=== PATIENT | male | born 1940 | race Two or more races ===

== ENCOUNTER 2018-01-31 14:59 | Inpatient (IN) | payer SELFPAY ==
[2018-01-31] MEDS ORDERED: ACETAMINOPHEN 500 MG TAB ONE (15:14)
[2018-01-31] MEDS ORDERED: ACETAMINOPHEN 500 MG TAB PO ONE (15:18)
--- NOTE | 2018-01-31 15:23 | EDPHY ---
H & P Stated Complaint: shaking at home while sitting on couch 20 mins ago. AMS, weakness Time Seen by Provider: 01/31/18 15:05 HPI/ROS: CHIEF COMPLAINT: Shaking, weak, altered mental status, urinating on self HISTORY OF PRESENT ILLNESS: This is a 77-year-old male who arrives with his family. They report that he went to the bathroom shortly before arrival, came back sat on the couch, then stood up to go to the bathroom again at which point he started shaking, and collapsed onto the couch. Somewhat unclear if he had a seizure or syncope. They report that he was awake and alert immediately after the incident. It is noted that the patient did urinate on himself. On arrival to the emergency department he is noted not to be able to walk and is complaining that his legs feel weak. Family reports that he has been in his usual state of health until this episode. Patient does state that he had a fever. Questionable history of increased urination. Patient denies a headache, chest pain, shortness of breath, abdominal pain, nausea, vomiting. He does report some pain in his flank. Patient family denies history of hypertension, diabetes, liver kidney issues, cardiac issues. They state he only takes medicines for his knees. Denies a history of cancer. REVIEW OF SYSTEMS: A comprehensive 10 system review of systems was reviewed and is otherwise negative aside from elements mentioned in the history of present illness and medical decision making. PAST MEDICAL HISTORY: Chronic knee pain. SOCIAL HISTORY: Nonsmoker, no alcohol, no illicit drug use. VITAL SIGNS Reviewed by me. Febrile to 38, heart rate 103, blood pressure 162/ 97, O2 sat 88% on room air. GENERAL: Elderly male, Ukrainian-speaking only, very weak, slow to answer questions which the patient the family states is normal. Occasionally shaky. HEENT: Atraumatic. 1.5 cm in diameter raised lesion on the left synagogue with granulation tissue present. Eyes: No icterus, no injection. Pupils equal round reactive to light. Mouth: Very dry mucous membranes. No erythema or lesions. No trauma to the tongue. Neck: supple with no adenopathy. LUNGS: Clear to auscultation anteriorly, no wheezes, rhonchi or rales. CARDIAC: Mild tachycardia. Otherwise regular, no rubs murmurs or gallops. ABDOMEN: Soft, nontender, nondistended, bowel sounds normal. Appendectomy scar in the right lower quadrant. BACK: Mild bilateral CVA tenderness. EXTREMITIES: No trauma. No edema. Moves all extremities x4. No edema. NEURO: Alert and appears to be answering questions correctly a utilizing the family as enlisted advisor. Cranial nerves 2-12 are intact. Generalized weakness but no focal deficits noted. SKIN: Hot to the touch, no rash. PSYCHIATRIC: No agitation, slightly slow in answering questions. - Personal History Current Tetanus Diphtheria and Acellular Pertussis (TDAP): No - Medical/Surgical History Hx Asthma: No Hx Chronic Respiratory Disease: No Hx Diabetes: No Hx Cardiac Disease: No Hx Renal Disease: No Hx Cirrhosis: No Hx Alcoholism: No Hx HIV/AIDS: No Hx Splenectomy or Spleen Trauma: No Other PMH: denies - Social History Smoking Status: Never smoked Constitutional: Initial Vital Signs Temperature (C) 37.8 C 01/31/18 15:01 Heart Rate 103 H 01/31/18 15:01 Respiratory Rate 16 01/31/18 15:01 Blood Pressure 162/97 H 01/31/18 15:01 O2 Sat (%) 88 L 01/31/18 15:01 O2 Delivery Mode Nasal Cannula O2 (L/minute) 2 Allergies/Adverse Reactions: No Known Allergies Allergy (Verified 01/31/18 19:09) Home Medications: Medication Instructions Recorded NK [No Known Home Meds] 01/31/18 Medical Decision Making - Diagnostics Imaging Results: Imaging Impressions Chest X-Ray 01/31/18 15:20 Impression: 1. Findings compatible with congestive heart failure are noted. 2. Lower lung opacities bilaterally, sequela of congestive heart failure versus pneumonia. 3. Possible enlarged hilar lymph node. 4. See above report for additional findings. Head CT 01/31/18 15:23 Impression: 1. Elderly brain with atrophy and probable white matter small vessel disease. 2. Nothing acute is identified. 3. See above report for additional findings. Results called and discussed with Mallorie Chaparro MD on 01/31/2018 at 16:38. ED Course/Re-evaluation: Patient noted to be febrile to 38.0. Concern for sepsis is raised. Patient IV placed was started on a L of normal saline. Bedside lactic acid is 3.1. Creatinine is 1.8. Severe sepsis was declared at 320 p.m.. Patient was started on 30 cc/kilos of normal saline. White blood cell count 9.6. 12-LEAD EKG: Please see the full report in [facility]. My interpretation: Sinus tachycardia, no acute ST or T-wave changes. Urinalysis was obtained and the patient was given a dose of ceftriaxone. Patient underwent CT scan of the head as well as chest x-ray. Head CT does not demonstrate any bleeding or mass. There is signs of atrophy. Chest x-ray with poor inspiration, however, patient does have an enlarged heart and appears to have some volume overload versus possible pneumonia. Levofloxacin 750 mg also ordered. Influenza and respiratory pathogen panel were ordered. On re-examination, the patient is somewhat restless, complaining of a headache. Repeat lactic acid was ordered. Neck remains supple with no meningismus. Patient remains alert and appropriate according to the family. Case discussed with Dr. Anthony Juan. Patient will be admitted to MedSurg at [facility]. Repeat lactic acid is 2.4. We are unable to obtain a PT/INR a secondary to technical difficulties. Unable to obtain at point of care influenza secondary to technical difficulties. The patient will be transferred over [facility] via EMS. At this point, respiratory pathogen panel, urine microscopic, BNP, PT/ INR, are all pending. Differential Diagnosis: Differential diagnoses for the patient's symptom complex was considered including but not limited to seizure versus syncope, septicemia, urosepsis, hypoxemia from pulmonary edema versus pneumonia, electrolyte abnormalities, acute coronary syndrome. - Data Points Laboratory Results: 01/31/18 01/31/18 01/31/18 15:51 15:15 15:15 PT INR POC Sodium POC Potassium POC Chloride POC Total CO2 POC BUN POC Creatinine POC Glucose POC Lactic Acid Warren 3.1 mmol/L H mmol/L (0.7-2.1) POC Calcium POC Total Bilirubin POC AST POC ALT POC Alk Phosphatase POC Troponin I 0.00 ng/mL ng/mL (0.00-0.08) NT-Pro-B Natriuret Pep POC Total Protein POC Albumin Urine Color YELLOW Urine Appearance CLEAR Urine pH 7.0 (5.0-7.5) Ur Specific [place] 1.014 (1.002-1.030) Urine Protein 1+ H (NEGATIVE) Urine Ketones NEGATIVE (NEGATIVE) Urine Blood 1+ H (NEGATIVE) Urine Nitrate POSITIVE H (NEGATIVE) Urine Bilirubin NEGATIVE (NEGATIVE) Urine Urobilinogen NEGATIVE EU EU (0.2-1.0) Ur Leukocyte Esterase NEGATIVE (NEGATIVE) Urine RBC 5-10 /hpf H /hpf (0-3) Urine WBC 5-10 /hpf H /hpf (0-3) Ur Epithelial Cells NONE SEEN /lpf /lpf (NONE-1+) Urine Bacteria 1+ /hpf H /hpf (NONE SEEN) Urine Mucus TRACE /lpf /lpf (NONE-1+) Urine Glucose NEGATIVE (NEGATIVE) 01/31/18 01/31/18 01/31/18 15:09 15:02 15:02 PT 13.2 SEC SEC (12.0-15.0) INR 0.98 (0.83-1.16) POC Sodium 144 mEq/L mEq/L (135-145) POC Potassium 4.0 mEq/L mEq/L (3.3-5.0) POC Chloride 106.0 mEq/L mEq/L (97-110) POC Total CO2 24 mEq/L mEq/L (22-31) POC BUN 33 mg/dL H mg/dL (7-23) POC Creatinine 1.8 mg/dL H mg/dL (0.7-1.3) POC Glucose 81 mg/dL mg/dL (70-100) POC Lactic Acid Warren POC Calcium 9.1 mg/dL mg/dL (8.5-10.4) POC Total Bilirubin 1.4 mg/dL mg/dL (0.1-1.4) POC AST 37 IU/L IU/L (17-59) POC ALT 44 IU/L IU/L (21-72) POC Alk Phosphatase 139 IU/L H IU/L (38-126) POC Troponin I NT-Pro-B Natriuret Pep 431 pg/mL pg/mL (0-450) POC Total Protein 8.3 g/dL H g/dL (6.3-8.2) POC Albumin 3.6 g/dL g/dL (3.5-5.0) Urine Color Urine Appearance Urine pH Ur Specific [place] Urine Protein Urine Ketones Urine Blood Urine Nitrate Urine Bilirubin Urine Urobilinogen Ur Leukocyte Esterase Urine RBC Urine WBC Ur Epithelial Cells Urine Bacteria Urine Mucus Urine Glucose Medications Given: Azithromycin 500 mg/ Sodium (Chloride) 255 mls @ 255 mls/hr IV DAILY THOMAS PRN Reason: Protocol Stop: 03/02/18 20:29 Last Admin: 01/31/18 21:20 Dose: 255 mls Discontinued Medications Acetaminophen (Tylenol) 1,000 mg PO EDNOW ONE Stop: 01/31/18 15:19 Last Admin: 01/31/18 15:19 Dose: 1,000 mg Fentanyl (Sublimaze) 25 mcg IVP EDNOW ONE Stop: 01/31/18 15:52 Last Admin: 01/31/18 15:55 Dose: 25 mcg Ceftriaxone Sodium/Dextrose (Rocephin 1 Gm (Premix)) 50 mls @ 100 mls/hr IV EDNOW ONE PRN Reason: Protocol Stop: 01/31/18 15:48 Last Admin: 01/31/18 16:25 Dose: 50 mls Sodium Chloride (Ns) 1,700 mls @ 3,400 mls/hr 30 ml/kg infuse over 30 min ( 1700 ml) IV EDNOW ONE PRN Reason: Protocol Stop: 01/31/18 15:53 Last Admin: 01/31/18 16:05 Dose: 1,700 mls Levofloxacin/Dextrose (Levaquin 750 Mg (Premix)) 150 mls @ 100 mls/hr IV EDNOW ONE PRN Reason: Protocol Stop: 01/31/18 18:13 Last Admin: 01/31/18 17:13 Dose: 150 mls Ibuprofen (Motrin) 600 mg PO EDNOW ONE Stop: 01/31/18 17:05 Last Admin: 01/31/18 17:39 Dose: 600 mg Point of Care Test Results: CBC CBC Collection Date 01/31/18 CBC Collection Time 15:05 WBC 9.2 RBC 5.34 HGB 17.4 HCT 48.2 PLT 200 Neut # 7.8 Neut 84.6 LYMPH # 1.0 LYMPH 11.2 Other WBC # 0.4 Other WBC 4.2 MCV 90.3 Chemistry 01/31/18 01/31/18 15:15 15:09 POC Sodium 144 mEq/L mEq/L (135-145) POC Potassium 4.0 mEq/L mEq/L (3.3-5.0) POC Chloride 106.0 mEq/L mEq/L (97-110) POC Total CO2 24 mEq/L mEq/L (22-31) POC BUN 33 mg/dL H mg/dL (7-23) POC Creatinine 1.8 mg/dL H mg/dL (0.7-1.3) POC Glucose 81 mg/dL mg/dL (70-100) POC Calcium 9.1 mg/dL mg/dL (8.5-10.4) POC Total Bilirubin 1.4 mg/dL mg/dL (0.1-1.4) POC AST 37 IU/L IU/L (17-59) POC ALT 44 IU/L IU/L (21-72) POC Alk Phosphatase 139 IU/L H IU/L (38-126) POC Troponin I 0.00 ng/mL ng/mL (0.00-0.08) POC Total Protein 8.3 g/dL H g/dL (6.3-8.2) POC Albumin 3.6 g/dL g/dL (3.5-5.0) Blood Gas/Lactic Acid-Venous 01/31/18 15:15 POC Lactic Acid Warren 3.1 mmol/L H mmol/L (0.7-2.1) Urine Dip Collection Date 01/31/18 Collection Time 15:52 Specific [place] (1.002-1.030) 1.025 PH (5.0-7.5) 7.0 Leukocytes (Negative) Trace Nitrites (Negative) Positive Protein (Negative) 2+ Glucose (Negative) Negative Ketones (Negative) Negative Urobilnogen (0.2-1.0 EU) 0.2 Bilirubin (Negative) Negative Blood (Negative) 1+ Departure - Departure Disposition: [facility] Clinical Impression: Septicemia Fever Qualifiers: Fever type: unspecified Qualified Code(s): R50.9 - Fever, unspecified Urinary tract infection Qualifiers: Urinary tract infection type: site unspecified Hematuria presence: without hematuria Qualified Code(s): N39.0 - Urinary tract infection, site not specified Condition: Fair
[2018-01-31] MEDS ORDERED: NS 1,700 ML IV ONE (15:24)
[2018-01-31] MEDS ORDERED: fentaNYL 100 MCG/2 ML INJ IVP ONE (15:51)
[2018-01-31] MEDS ORDERED: IBUPROFEN 600 MG TAB PO ONE (17:04)
[2018-01-31 17:55] LABS: INR 0.98 (0.83-1.16); PROTIME(PATIENT) 13.2 SEC (12.0-15.0)
[2018-01-31] MEDS ORDERED: HYDROCODONE/APAP 5/325 TAB PO PRN (18:51)
[2018-01-31] MEDS ORDERED: ACETAMINOPHEN 325 MG TAB PO PRN (18:51)
[2018-01-31] MEDS ORDERED: LORazepam 0.5 MG TAB PO PRN (18:51)
[2018-01-31] MEDS ORDERED: PROMETHAZINE HCL 25 MG/ML INJ IVP PRN (18:51)
[2018-01-31] MEDS ORDERED: ONDANSETRON 4 MG/2 ML VIAL IVP PRN (18:51)
[2018-01-31] MEDS ORDERED: oxyCODONE IR 5 MG TAB PO PRN (18:51)
[2018-01-31] MEDS ORDERED: ONDANSETRON DISINTEGRATING 4 MG TAB PO PRN (18:51)
[2018-01-31] MEDS ORDERED: HYDROmorphONE/DILAUDID 1 MG/ML INJ IVP PRN (18:51)
[2018-01-31 19:41] LABS: PLATELET COUNT 182 10^3/uL (150-400)
--- NOTE | 2018-01-31 19:53 | PDGENHP ---
History and Physical - Chief Complaint fever, weakness - History of Present Illness 77 yo M with no known PMH presenting from home after he was noted to be febrile and having difficulty with significant weakness. Per patient and his family he was on the toilet when he became very weak, and had to call his for help to get him up. He was noted to be having shaking chills and seemed febrile to family. He notes that prior to that for the last several days he has had cough and sputum production. He denies any chest pain or sob. He has not noticed any changes in urination or difficulty urinating. He has not had similar issues in the past. He notes that currently he feels well for the most part. Patient is Kyrgyz speaking only, history was obtained with the help of chemical weigher present at bedside. History Information - Allergies/Home Medication List Allergies/Adverse Reactions: No Known Allergies Allergy (Verified 01/31/18 19:09) Home Medications: NK [No Known Home Meds] 01/31/18 [Last Taken Unknown] I have personally reviewed and updated: family history, medical history, social history, surgical history - Past Medical History no pertinent PMH - Surgical History Reports: appendectomy - Family History Positive for: non-pertinent - Social History Smoking Status: Never smoked Alcohol Use: Other (2-3 beers per day) Drug Use: None Additional social history: , SSO, originally from [place] Review of Systems Review of Systems: ROS: 10pt was reviewed & negative except for what was stated in HPI & below Physical Exam Physical Exam: Temp Pulse Resp BP Pulse Ox 36.9 C 77 16 124/67 H 95 01/31/18 19:42 01/31/18 19:42 01/31/18 19:42 01/31/18 19:42 01/31/18 19:42 O2 (L/minute) 3 Constitutional: no apparent distress, appears nourished Eyes: PERRL, anicteric sclera Ears, Nose, Mouth, Throat: moist mucous membranes, hearing normal Cardiovascular: regular rate and rhythym, no murmur, rub, or gallop, No edema Respiratory: no respiratory distress, no rales or rhonchi Gastrointestinal: normoactive bowel sounds, soft, non-tender abdomen Genitourinary: no bladder tenderness Skin: warm, other (lesion on left forehead with scabbing and erythema) Musculoskeletal: no muscle tenderness Neurologic: AAOx3 Psychiatric: interacting appropriately, not anxious, not encephalopathic Lab Data & Imaging Review 01/31/18 19:29 01/31/18 19: WBC 13.68 10^3/uL (3.80-9.50) H 01/31/18 19: RBC 4.54 10^6/uL (4.40-6.38) 01/31/18 19: Hgb 14.2 g/dL (13.7-17.5) 01/31/18 19: Hct 40.6 % (40.0-51.0) 01/31/18 19: MCV 89.4 fL (81.5-99.8) 01/31/18: MCH 31.3 pg (27.9-34.1) 01/31/18: MCHC 35.0 g/dL (32.4-36.7) 01/31/18: RDW 14.0 % (11.5-15.2) 01/31/18: Plt Count 182 10^3/uL (150-400) 01/31/18 19: MPV 11.3 fL (8.7-11.7) 01/31/18 19: PT 13.2 SEC (12.0-15.0) 01/31/18 15:02 INR 0.98 (0.83-1.16) 01/31/18 15:02 VBG Lactic Acid 1.5 mmol/L (0.7-2.1) 01/31/18 19: POC Sodium 144 mEq/L (135-145) 01/31/18 15:09 POC Potassium 4.0 mEq/L (3.3-5.0) 01/31/18 15:09 POC Chloride 106.0 mEq/L (97-110) 01/31/18 15:09 POC Total CO2 24 mEq/L (22-31) 01/31/18 15:09 POC BUN 33 mg/dL (7-23) H 01/31/18 15:09 POC Creatinine 1.8 mg/dL (0.7-1.3) H 01/31/18 15:09 POC Glucose 81 mg/dL (70-100) 01/31/18 15:09 POC Lactic Acid Warren 2.4 mmol/L (0.7-2.1) H D 01/31/18 17:03 POC Calcium 9.1 mg/dL (8.5-10.4) 01/31/18 15:09 POC Total Bilirubin 1.4 mg/dL (0.1-1.4) 01/31/18 15:09 POC AST 37 IU/L (17-59) 01/31/18 15:09 POC ALT 44 IU/L (21-72) 01/31/18 15:09 POC Alk Phosphatase 139 IU/L (38-126) H 01/31/18 15:09 POC Troponin I 0.00 ng/mL (0.00-0.08) 01/31/18 15:15 NT-Pro-B Natriuret Pep 431 pg/mL (0-450) 01/31/18 15:02 POC Total Protein 8.3 g/dL (6.3-8.2) H 01/31/18 15:09 POC Albumin 3.6 g/dL (3.5-5.0) 01/31/18 15:09 Urine Color YELLOW 01/31/18 15:51 Urine Appearance CLEAR 01/31/18 15:51 Urine pH 7.0 (5.0-7.5) 01/31/18 15:51 Ur Specific [place] 1.014 (1.002-1.030) 01/31/18 15:51 Urine Protein 1+ (NEGATIVE) H 01/31/18 15:51 Urine Ketones NEGATIVE (NEGATIVE) 01/31/18 15:51 Urine Blood 1+ (NEGATIVE) H 01/31/18 15:51 Urine Nitrate POSITIVE (NEGATIVE) H 01/31/18 15:51 Urine Bilirubin NEGATIVE (NEGATIVE) 01/31/18 15:51 Urine Urobilinogen NEGATIVE EU (0.2-1.0) 01/31/18 15:51 Ur Leukocyte Esterase NEGATIVE (NEGATIVE) 01/31/18 15:51 Urine RBC 5-10 /hpf (0-3) H 01/31/18 15:51 Urine WBC 5-10 /hpf (0-3) H 01/31/18 15:51 Ur Epithelial Cells NONE SEEN /lpf (NONE-1+) 01/31/18 15:51 Urine Bacteria 1+ /hpf (NONE SEEN) H 01/31/18 15:51 Urine Mucus TRACE /lpf (NONE-1+) 01/31/18 15:51 Urine Glucose NEGATIVE (NEGATIVE) 01/31/18 15:51 Visualized and Interpreted Chest x-ray results: Yes Chest X-Ray results: other (bilateral lower lung opacities c/w CHF vs PNA) Visualized and Interpreted imaging results: Yes Interpretation: head CT: nothing acute Assessment & Plan Assessment: 77 yo M with no significant PMH presenting with severe sepsis and human rhinovirus/enterovirus on resp pcr # severe sepsis: with source presumably viral pna as next, lactate trending down , HD stable. # pna: presumably due to viral infection with resp panel showing human rhinovirus/enterovirus and bilateral infiltrate noted on cxr. Started on ctx and will add azithro for now. Will repeat cxr in am as last one was a bit of a poor study. ? of CHF on cxr but BNP wnl, no edema so seems less likely. 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 Old records reviewed. Care plan reviewed with ER doctor including plans for abx. Further hx obtained from patients family present at bedside.
[2018-01-31] MEDS: AZITHROMYCIN IV 500 MG in NS 250 ML IV SCH (21:20)
[2018-02-01 05:41] LABS: PLATELET COUNT 169 10^3/uL (150-400)
--- NOTE | 2018-02-01 06:40 | CPEKG ---
Test Reason : OPEN Blood Pressure : / mmHG Vent. Rate : 074 BPM Atrial Rate : 074 BPM P-R Int : 156 ms QRS Dur : 094 ms QT Int : 403 ms P-R-T Axes : 017 -14 007 degrees QTc Int : 448 ms Sinus rhythm Abnormal R-wave progression, early transition Minimal ST elevation, anterior leads Confirmed by Emma Nichols [id number]) on 02/01/2018 6:39:20 AM Referred By: Confirmed By:Emma Nichols
[2018-02-01] MEDS ORDERED: ENOXAPARIN 30 MG/0.3 ML SYR SC SCH (09:00)
[2018-02-01] MEDS: AZITHROMYCIN IV 500 MG in NS 250 ML IV SCH (09:58)
--- NOTE | 2018-02-01 13:13 | HOSPPROG ---
Hospitalist Progress Note Assessment/Plan: 77 yo M with no significant PMH presenting with severe sepsis and human rhinovirus/enterovirus on resp pcr. First encounter, chart reviewed. Met with historical interpreter. # severe sepsis: -resolved #Ecoli bacteremia -likely urine source -cont CTX #PNA -presumably viral pna -human rhinovirus -cxr reviewed, viral process -DC rose # hiwot: -presumed hiwot -improved with hydration # bacturia: -patient denies urinary sxs, -being treated with ctx -cultures pending # skin lesion: -appears concerning for basal cell - has been present and growing x 2 years per patient - he does not have a doctor currently - stressed to him and family that he should establish care with [facility] and have that removed # Dispo -change to inpatient status -requires further iv abx treatment -await urine cx -PT eval Subjective: Feels better. Wants to go home. Doesn't feel sick. Objective: Vital Signs Temp Pulse Resp BP Pulse Ox 36.3 C 62 22 H 125/63 H 94 02/01/18 11:51 02/01/18 11:51 02/01/18 11:51 02/01/18 11:51 02/01/18 11:51 Microbiology 01/31/18 16:40 Respiratory Panel (PCR) - Final Nasal, Sinus - Swab Human Rhinovirus/Enterovirus Laboratory Results 02/01/18 05:27 02/01/18 05:27 01/31/18 02/01/18 02/02/18 05:59 05:59 05:59 Intake Total 2200 Output Total 800 200 Balance 1400 -200 PT 13.2 SEC (12.0-15.0) 01/31/18 15:02 INR 0.98 (0.83-1.16) 01/31/18 15:02 - Physical Exam Constitutional: appears nourished, not in pain, chronically ill appearing Eyes: PERRL, anicteric sclera, EOMI Ears, Nose, Mouth, Throat: moist mucous membranes, hearing normal, ears appear normal Cardiovascular: regular rate and rhythym, No JVD, No edema Respiratory: no respiratory distress, no rales or rhonchi, reduced air movement Gastrointestinal: normoactive bowel sounds, No tenderness, No ascites Skin: warm, normal color, other (facial lesion) Musculoskeletal: no joint effusions, abnormal gait, generalized weakness Neurologic: AAOx3 Psychiatric: not anxious, not encephalopathic, thought process linear, poor insight ICD10 Worksheet Patient Problems: Problems Problem Status Onset Fever Acute Septicemia Acute Urinary tract infection Acute
--- NOTE | 2018-02-01 15:21 | PDMN ---
Medical Necessity [place] [facility] [id number] S[place] A-3 days: 77 yo w/ severe sepsis and ecoli bacteremia per BC and viral PNA and bacturia. Urine cx pending. On admit Creat 1.8, elevated lactate 3.1, tachy, elevated RR, temp 38.7, sats 80s, placed on O2. Initially OBS but change to IP status as pt requires further monitoring and tx w/ IV antibx tx for multi infectious processes, awaiting urine cx and PT eval, remains on TELE. Change to IP status 02/01/18 @1311
--- NOTE | 2018-02-01 15:54 | ASMTCMCOM ---
CM Note CM Note Notes: Pt is a 77 y/o man admitted for fever, shaking, sepsis and acute renal insufficiency. Pt will most likely d/c independent without any needs when medically stable. No therapies ordered at this time. CM available for changes. Plan: Independent Date Signed: 02/01/2018 03:54 PM Electronically Signed By:ELINA Herrera
[2018-02-01] MEDS: NS 1,000 ML IV SCH (21:27)
[2018-02-02] MEDS: NS 1,000 ML IV SCH (07:16)
[2018-02-02] MEDS: ENOXAPARIN 40 MG/0.4 ML SYR SC SCH (08:53)
--- NOTE | 2018-02-02 09:18 | HOSPPROG ---
Hospitalist Progress Note Assessment/Plan: 77 yo M with no significant PMH presenting with severe sepsis and human rhinovirus/enterovirus on resp pcr. First encounter, chart reviewed. Met with audiologist. # sepsis: -fever yesterday of 38.7 around 15:00 #E coli bacteremia -likely urine source -cont CTX (IV abx should be continued until he has no further fevers x 48 hours- then can switch to oral) -no need of repeat blood cx #PNA, viral -human rhinovirus # hiwot: -improved with hydration # bacturia: -patient denies urinary sxs, -being treated with ctx # skin lesion ont left forehead area -very concerning for cancer (basal cell) -has been non healing x 6 months # Plan: discussed w the patient and his family the importance of getting f/u in regards to skin lesion, needs to be biopsied. Explained this may be cancer. Also, discussed with the patient, he needs close f/u. He needs to see a urologist. CM working on getting him a f/u appt w [facility] Jorge. Will ask PT and OT to see to be sure he is strong enough to return home. Subjective: Karel has no c/o pain, feeling better, but has not been oob much. Objective: Vital Signs Temp Pulse Resp BP Pulse Ox 36.7 C 71 16 135/77 H 91 L 02/02/18 08:00 02/02/18 08:00 02/02/18 08:00 02/02/18 08:00 02/02/18 08:00 Laboratory Results 02/02/18 05:04 02/01/18 02/02/18 02/03/18 05:59 05:59 05:59 Intake Total 1305 1300 Output Total 375 800 Balance 930 500 PT 13.2 SEC (12.0-15.0) 01/31/18 15:02 INR 0.98 (0.83-1.16) 01/31/18 15:02 - Physical Exam Constitutional: appears nourished, not in pain, chronically ill appearing Eyes: PERRL Ears, Nose, Mouth, Throat: hearing normal Cardiovascular: regular rate and rhythym Respiratory: no respiratory distress Skin: warm, other (lesion on left forehead area, moist, irregular border) Neurologic: AAOx3 Psychiatric: interacting appropriately ICD10 Worksheet Patient Problems: Problems Problem Status Onset Fever Acute Septicemia Acute Urinary tract infection Acute
[2018-02-03] MEDS ORDERED: HYDROmorphONE/DILAUDID 2 MG/ML INJ IVP PRN (08:00)
[2018-02-03] MEDS: ENOXAPARIN 40 MG/0.4 ML SYR SC SCH (10:08)
--- NOTE | 2018-02-03 11:34 | HOSPPROG ---
Hospitalist Progress Note Assessment/Plan: 77 yo M with no significant PMH presenting with severe sepsis and human rhinovirus/enterovirus on resp pcr. Met with manager estate. Reviewed his care with Dr Reyes who will see later today # sepsis: -low grade fever #E coli bacteremia -likely urine source -cont CTX -reviewed susceptibilities and not a good oral agent to treat, ID to see today -patient and his family are fine w IV abx and will bring him to 3E daily #PNA, viral -human rhinovirus # hiwot: -improved with hydration # bacteruria: -patient denies urinary sxs, -being treated with ctx # skin lesion ont left forehead area -very concerning for cancer (basal cell) -has been non healing x 6 months # Plan: Dr Reyes to see, family is fine if he is dc today or tomorrow, they will bring him to [facility] for abx. They are aware he needs close f/u w a PCP, CM arranging [facility]t [facility]. Subjective: Karel said he feels fine Objective: Vital Signs Temp Pulse Resp BP Pulse Ox 36.9 C 61 18 185/79 H 91 L 02/03/18 08:00 02/03/18 08:00 02/03/18 08:00 02/03/18 08:00 02/03/18 08:00 Laboratory Results 02/02/18 05:04 02/02/18 02/03/18 02/04/18 05:59 05:59 05:59 Intake Total 1305 1400 Output Total 375 1200 Balance 930 200 PT 13.2 SEC (12.0-15.0) 01/31/18 15:02 INR 0.98 (0.83-1.16) 01/31/18 15:02 - Physical Exam Constitutional: appears nourished, not in pain, chronically ill appearing Eyes: PERRL Ears, Nose, Mouth, Throat: hearing normal Cardiovascular: regular rate and rhythym Respiratory: no respiratory distress Skin: warm, other (lesion left forehead area oozing serous drainage) Psychiatric: interacting appropriately ICD10 Worksheet Patient Problems: Problems Problem Status Onset Fever Acute Septicemia Acute Urinary tract infection Acute
--- NOTE | 2018-02-03 16:33 | ASMTCMCOM ---
CM Note CM Note Notes: Met with pt and family re; IV abx. Pt will need abx for another week, he has no insurance and has little money. Gave dtr card for financial counseling. Pt needs to apply for Medicare, since he is over 65. Financial counseling will reach out to dtr. CM scheduled pt for outpt infusion at 11am, dtr notified. Dtr has already scheduled appt at the [facility] in [place]. DC Plan: Out pt infusion Date Signed: 02/03/2018 04:33 PM Electronically Signed By:Jessica Masterson RN
[2018-02-03] MEDS ORDERED: hydrALAZINE 10 MG TAB PO PRN (17:30)
--- NOTE | 2018-02-03 19:16 | CPEKG ---
Test Reason : AMS, "shaking" Blood Pressure : / mmHG Vent. Rate : 105 BPM Atrial Rate : 105 BPM P-R Int : 127 ms QRS Dur : 080 ms QT Int : 311 ms P-R-T Axes : 005 -24 039 degrees QTc Int : 412 ms Sinus tachycardia Borderline left axis deviation Confirmed by Emma Nichols ([id number]) on 02/03/2018 7:15:50 PM Referred By: Confirmed By:Emma Nichols
--- NOTE | 2018-02-03 21:49 | GCON ---
INFECTIOUS DISEASE CONSULTATION DATE OF CONSULTATION: 02/03/2018 REFERRING PHYSICIAN: Nirali Park NP REASON FOR CONSULTATION: Escherichia coli bacteremia. HISTORY OF PRESENT ILLNESS: Patient is a 77-year-old male without significant past medical history who I am asked to see in consultation for sepsis due to E coli bacteremia. Patient was admitted on 01/31/18, after he was found very weak on the toilet and could not get up. At this time, he was noted to have rigors and apparent fever according to family. He has had some cough without significant shortness of breath. He did not note any painful urination or changes in urination. He was noted to have a temperature of 38.7. White blood cell count was obtained and was elevated at 13.68. Urinalysis showed 5 to 10 white blood cells and 5 to 10 red blood cells. Blood cultures were obtained and 2/2 sets have shown E coli, which is resistant to fluoroquinolones. Urine culture was obtained and showed greater than 10 to 5th E coli which is resistant to fluoroquinolones and Bactrim. A respiratory pathogen panel was also obtained and was positive for rhinovirus/enterovirus. Patient has been maintained on droplet precaution and notes his breathing is improved. He does not have suprapubic or flank pain. He has not experienced recurrent fever or rigors. He has been treated with ceftriaxone and feels significantly improved. Given the above findings, I am now asked to assist in his ongoing management. PAST MEDICAL HISTORY: Unremarkable. PAST SURGICAL HISTORY: Appendectomy. CURRENT MEDICATIONS: Ceftriaxone 2 g IV daily, Lovenox 40 mg subcu daily, Norvasc 2.5 mg p.o. daily. ALLERGIES: No known drug allergies. SOCIAL HISTORY: Patient does not smoke or drink alcohol. No drug use. REVIEW OF SYSTEMS: Outside that noted in HPI, the remainder of a 10 system review is unremarkable, except for a chronic skin lesion over left temporal region. FAMILY HISTORY: Diabetes mellitus. PHYSICAL EXAMINATION: VITAL SIGNS: Temperature 36.5, heart rate 16, respiratory rate 62, blood pressure 181/87, oxygen saturation 93% on room air. GENERAL: Patient is well nourished, well developed in no acute distress. He appears nontoxic. HEENT: There is no scleral icterus, conjunctival injection, or conjunctival petechiae. Oropharynx shows moist mucous membranes with dentition in poor repair. No nasal discharge or sinus tenderness. There is an approximately 3 x 3 cm exophytic skin lesion with loss of skin over the left temporal area. NECK: Supple without palpable lymphadenopathy or thyromegaly. CHEST: Clear to auscultation bilaterally without adventitious sounds. The respiratory effort normal. CARDIOVASCULAR: Regular rate and rhythm without murmurs, gallops, or rubs. ABDOMEN: Soft, nontender, nondistended. There is no palpable organomegaly. Bowel sounds are present. BACK: There is no CVA tenderness bilaterally. MUSCULOSKELETAL: No cyanosis, clubbing, or edema. SKIN: No stigmata of endocarditis. Skin is warm and dry to touch. NEUROLOGIC : Patient is alert and interacts appropriately with examiner. Cranial nerves 2 -12 are grossly intact. Sensation is grossly intact. Muscle tone and bulk are normal. LYMPHATICS: No cervical or supraclavicular nodes. LABORATORY/IMAGING: White blood cell count 9.3, hematocrit 38.9, platelets 169 , neutrophils 80%. Serum creatinine 1.2. AST 28, ALT 39, bilirubin 1.0, alkaline phosphatase 118, albumin 3.0. Blood cultures and urine culture as outlined above. Respiratory panel PCR showing rhinovirus/enterovirus. Chest x-ray with bilateral interstitial infiltrates. IMPRESSION: 1. Escherichia coli bacteremia likely of urinary etiology associated with sepsis, which has resolved: Given growth of Escherichia coli in both blood and urine. This is most likely related to urinary etiology. The susceptibility profile is slightly different with the urine isolate showing resistance to both Bactrim and fluoroquinolones. Based on this finding, oral options to complete therapy with adequate bioavailability are limited; therefore, will plan for patient to complete 10 days of intravenous ceftriaxone in total. 2. Viral pneumonia: Respiratory PCR with rhinovirus/enterovirus and chest x- ray is consistent with likely viral pneumonitis. This is clinically improving over time. RECOMMENDATIONS: 1. Agree with ceftriaxone 2 g IV daily x10 days total. 2. Continue droplet precautions while hospitalized. 3. Case Management making arrangements for patient to receive remaining antibiotic therapy on 3 at the infusion center. 4. We will complete IV antibiotic therapy with peripheral IV given that he will only require relatively short duration of therapy once he is discharged. 5. Clinical findings and plan were reviewed with Nirali Park, nurse practitioner. Clinical plan was discussed with patient and family with use of dredge mate. Thank you for this consultation. We will continue to follow the patient with you. /[id number]/MODL MTDD
[2018-02-04 05:50] LABS: PLATELET COUNT 224 10^3/uL (150-400)
--- NOTE | 2018-02-04 10:06 | HOSPPROG ---
Hospitalist Progress Note Assessment/Plan: 77 yo M with no significant PMH presenting with severe sepsis and human rhinovirus/enterovirus on resp pcr. Met with foreign language interpreter. # sepsis: -low grade fever #E coli bacteremia -likely urine source -cont CTX -will com to 3 E for abx x 5 days #PNA, viral -human rhinovirus # hiwot: -improved with hydration # bacteruria: -patient denies urinary sxs, -being treated with ctx # skin lesion ont left forehead area -very concerning for cancer (basal cell) -has been non healing x 6 months # Plan: dc home, peripheral IV Subjective: Karel said he is feeling so much better and is very appreciative. Objective: Vital Signs Temp Pulse Resp BP Pulse Ox 36.7 C 59 L 18 147/77 H 91 L 02/04/18 08:00 02/04/18 08:00 02/04/18 08:00 02/04/18 08:00 02/04/18 08:00 Laboratory Results 02/04/18 05:30 02/04/18 05:30 02/03/18 02/04/18 02/05/18 05:59 05:59 05:59 Intake Total 1400 Output Total 1200 Balance 200 PT 13.2 SEC (12.0-15.0) 01/31/18 15:02 INR 0.98 (0.83-1.16) 01/31/18 15:02 - Physical Exam Constitutional: no apparent distress, not in pain Eyes: PERRL Ears, Nose, Mouth, Throat: hearing normal Respiratory: no respiratory distress Skin: warm Musculoskeletal: full muscle strength Neurologic: AAOx3 Psychiatric: interacting appropriately ICD10 Worksheet Patient Problems: Problems Problem Status Onset Fever Acute Septicemia Acute Urinary tract infection Acute
[2018-02-04] MEDS: ENOXAPARIN 40 MG/0.4 ML SYR SC SCH (10:08)
--- NOTE | 2018-02-04 11:23 | ASMTCMCOM ---
CM Note CM Note Notes: Spoke with patient's daughter, Sara to let her know patient is discharging today. She informed me his [facility] appointment is for Saturday, February 10, 2018 at 10:00 AM. Patient's infusion appointments are already set up for 11:00 AM daily. Sara will be here to transport her dad home. No further needs. CM available if needs arise. Date Signed: 02/04/2018 11:23 AM Electronically Signed By:Sandi Wakefield LCSW
--- NOTE | 2018-02-04 11:30 | ASMTLACE ---
ROMÁNE Length of stay for Answers: 3 days current admission Acuity / Level of Answers: Yes Care: Did the patient have an inpatient admission? Comorbidities - select Answers: Opioid dependence all that apply / Chronic pain # of Emergency department Answers: 1-2 visits in the last 6 months Social determinants Answers: History of substance abuse (ETOH, street drugs, prescription drugs, etc.) Score: 14 Date Signed: 02/04/2018 11:29 AM Electronically Signed By:Sandi Wakefield LCSW
[2018-02-04 11:49] VITALS: BP 132/84
--- NOTE | 2018-02-04 11:52 | ASDISCHSUM ---
Discharge Information Plan Status:Home with No Needs Medically Cleared to Leave:02/03/2018 Discharge Date:02/03/2018 CM D/C Disposition:Home, Routine, Self-Care ADT D/C Disposition: Projected Discharge Date:02/04/2018 12:00 AM Transportation at D/C:Family Discharge Delay Reason: Follow-Up Date:02/04/2018 12:00 AM Discharge Slot:2 - 12:01 pm - 18:00 pm Final Diagnosis:Sepsis Placement Information Patient Contact Information Contact Name:SUNG Relationship:Daughter Address:[address] [place] Work Phone: City:[facility] Phone: [facility]/Zip Code:[place] [address] Email: Financial Information Financial Class:Self-Pay Primary Plan Desc:SELF PAY Primary Plan Number: Secondary Plan Desc: Secondary Plan Number: Assessment Information LACE LACE Length of stay for Answers: 3 days current admission Acuity / Level of Answers: Yes Care: Did the patient have an inpatient admission? Comorbidities - select Answers: Opioid dependence all that apply / Chronic pain # of Emergency department Answers: 1-2 visits in the last 6 months Social determinants Answers: History of substance abuse (ETOH, street drugs, prescription drugs, etc.) Score: 14 Date Signed: 02/04/2018 11:29 AM Electronically Signed By:Sandi Wakefield LCSW [facility] CM Progress Note CM Note CM Note Notes: Pt is a 77 y/o man admitted for fever, shaking, sepsis and acute renal insufficiency. Pt will most likely d/c independent without any needs when medically stable. No therapies ordered at this time. CM available for changes. Plan: Independent Date Signed: 02/01/2018 03:54 PM Electronically Signed By:ELINA Herrera [facility] CM Progress Note CM Note CM Note Notes: Met with pt and family re; IV abx. Pt will need abx for another week, he has no insurance and has little money. Gave dtr card for financial counseling. Pt needs to apply for Medicare, since he is over 65. Financial counseling will reach out to dtr. CM scheduled pt for outpt infusion at 11am, dtr notified. Dtr has already scheduled appt at the [facility] in [place]. DC Plan: Out pt infusion Date Signed: 02/03/2018 04:33 PM Electronically Signed By:Jessica Masterson RN [facility] CM Progress Note CM Note CM Note Notes: Spoke with patient's daughter, Sara to let her know patient is discharging today. She informed me his [facility] appointment is for Saturday, February 10, 2018 at 10:00 AM. Patient's infusion appointments are already set up for 11:00 AM daily. Sara will be here to transport her dad home. No further needs. CM available if needs arise. Date Signed: 02/04/2018 11:23 AM Electronically Signed By:Sandi Wakefield LCSW Case Management Discharge Plan Note Case Management Discharge Discharge Order Complete? Answers: Yes Patient to Obtain Answers: Independently Medications Transportation Arranged Answers: Family/Friends Family Notified Answers: Yes Notes: DaughterSara Discharge Comments Notes: Patient to discharge home today with outpatient infusion appointments daily at 11:00 AM at [facility] infusion center. Patient also has an appointment with [facility] for follow-up on February 10, 2018 at 10:00 AM. Patient's daughter Sara was notified of the discharge and will be here to transport her dad home. No further needs. Date Signed: 02/04/2018 11:49 AM Electronically Signed By:Sandi Wakefield LCSW Intervention Information Intervention Type:*Incorrect Registration Date of Service:02/01/2018 09:05 AM Patient Type:Inpatient Staff Member:Katia Love Hours: Discipline: Severity: Comment:
--- NOTE | 2018-02-04 12:27 | GDS ---
DISCHARGE DIAGNOSES: 1. Sepsis. 2. Escherichia coli bacteremia. 3. Viral pneumonia, human rhinovirus. 4. Acute kidney injury. 5. Bacteriuria. 6. Skin lesion on his left forehead area, very concerning for basal cell cancer. CONSULTATION: Abraham Reeys MD. HISTORY OF PRESENT ILLNESS: Briefly, Mr. Montoya is a 77-year-old Luxembourgish-speaking man who does not have any significant past medical history. He was admitted on 01/31 after he was found to be ve ry weak and could not get up. He had rigors and fever, according to the family, also with a cough. His blood cultures were sent and grew out E coli. A urine culture was also obtained and also noted t o be E coli, which was resistant to fluoroquinolones and Bactrim. He also had a respiratory pathogen panel that was positive for the rhinovirus, enterovirus. He was treated with droplet precautions an d treated with ceftriaxone. Because his bacteremia had an associated sepsis, there was concern about the adequate bioavailability being limited with the other antibiotics. He will be discharged home t elizabeth. He will come to [facility] for 5 more days to be treated with ceftriaxone. HOSPITAL COURSE: 1. Sepsis, resolved. 2. E coli bacteremia. This is most likely a urinary source. We will continue ceftriaxone for [facility] 5 days after today. 3. Viral pneumonia. He has human rhinovirus with respiratory precautions. 4. Acute kidney injury, resolved. 5. Bacteriuria. He really had no specific symptoms. 6. Hypertension. Started on Norvasc. We will have him follow up with the [facility]. 7. Skin lesion of the forehead area. I talked to the family via the vehicle calibration engineer. I am very concern ed that he may have some type of basal cell cancer based on that is not healing and its irregular bor ders. I am recommending that he get this biopsied and close followup at [facility]. DISCHARGE CONDITION: Stable. Blood pressure is 144/77, respiratory rate is 18, pulse is 59, tempera ture is 36.7 Celsius, O2 sats on room air 91%. MEDICATIONS AT DISCHARGE: Please see the EMR. DISCHARGE INSTRUCTIONS: 1. He has an appointment scheduled to come to the outpatient infusion center at 11 a.m. daily for 5 more days. 2. He has an appointment at [facility] on 02/10 at 10 a.m. to further discuss the lesion on his forehead as well as his blood pressure. Greater than 30 minutes discharging and coordinating his care. /[id number]/ARTURL
== END 2018-02-04 13:09 | disposition home or self-care (01) | DRG 871 ==
LOC: CED 14:59 → INTOOBSV 16:35 → EDBD 16:35 → F3E 18:41 → OBSVTOIN 02-01 13:16
PROVIDERS: ADMIT Internal Medicine; ATTEND Internal Medicine
DX: A41.51 Sepsis due to Escherichia coli [E. coli] (principal); J12.89 Other viral pneumonia; N17.9 Acute kidney failure, unspecified; R82.71 Bacteriuria; L98.9 Disorder of the skin and subcutaneous tissue, unspecified
CPT/HCPCS: 70450-PO; 71046-PO; 80053-PO; 83605-PO; 84484-PO; 96365; 97116-GP; 97162-GP; 97166-GO; 97535-GO; G0378; J0456; J0696; J1650; J1956